=== PATIENT | female | born 1955 | race Caucasian/White ===

== ENCOUNTER 2019-07-30 17:21 | Emergency (ER) | payer OTHER ==
[2019-07-30] MEDS ORDERED: Ketorolac 30 MG/ML SDV IM ONE (20:08)
--- NOTE | 2019-07-30 20:10 | EDM.PDOC ---
ED HPI GENERAL MEDICAL PROBLEM - General Chief Complaint: Upper Extremity Injury/Pain Stated Complaint: RIGHT SIDE CHEST/ARM PAIN Time Seen by Provider: 07/30/19 19:49 Source of Information: Reports: Patient, RN Notes Reviewed History Limitations: Reports: No Limitations - History of Present Illness INITIAL COMMENTS - FREE TEXT/NARRATIVE: 63-year-old female presents emergency department today following a fall at home she tripped or She landed predominantly on the right side of her chest, she is experiencing pain in the chest no difficulty in the shoulder or elbow right side Pain Score (Numeric/FACES): 6 - Related Data Allergies Allergy/AdvReac Type Severity Reaction Status Date / Time adhesive tape Allergy Rash Verified 07/30/19 19:53 ciprofloxacin Allergy Hives Verified 07/30/19 19:53 clarithromycin Allergy Nausea and Verified 07/30/19 19:53 Vomiting flurazepam Allergy Hives Verified 07/30/19 19:53 levofloxacin Allergy Hives Verified 07/30/19 19:53 phenazopyridine Allergy Hives Verified 07/30/19 19:53 sulfacetamide Allergy Hives Verified 07/30/19 19:53 sulfamethoxazole Allergy Hives Verified 07/30/19 19:53 trimethoprim Allergy Hives Verified 07/30/19 19:53 [From Sulfamethoprim] IV contrast Allergy Anaphylactic Uncoded 07/30/19 19:53 Shock Home Meds: Home Meds Aspirin [Ecotrin EC] 81 mg PO BEDTIME 07/30/19 [History] Calcium Carbonate [Calcium] 500 mg PO BEDTIME 07/30/19 [History] ClonazePAM [KlonoPIN] 1 - 2 mg PO BEDTIME 07/30/19 [History] DULoxetine [Cymbalta] 120 mg PO BEDTIME 07/30/19 [History] Gabapentin [Neurontin] 600 mg PO TID 07/30/19 [History] Galcanezumab-Gnlm [Emgality Pen] 120 mg IJ ASDIRECTED 07/30/19 [History] Ondansetron [Zofran ODT] 4 mg PO ASDIRECTED 07/30/19 [History] Oxybutynin Chloride [Ditropan Xl] 10 mg PO BEDTIME 07/30/19 [History] Pantoprazole [ProTONIX] 40 mg PO BEDTIME 07/30/19 [History] Prochlorperazine [Compazine] 10 mg PO ASDIRECTED 07/30/19 [History] Risedronate [Actonel] 35 mg PO WEEKLY 07/30/19 [History] Topiramate [Topamax] 100 mg PO BID 07/30/19 [History] atorvaSTATin [Lipitor] 20 mg PO BEDTIME 07/30/19 [History] buPROPion HCl [Wellbutrin Xl] 300 mg PO DAILY 07/30/19 [History] diphenhydrAMINE HCl [Diphenhydramine HCl] 25 mg PO ASDIRECTED 07/30/19 [History] traZODone HCl [Trazodone HCl] 1 - 3 mg PO ASDIRECTED 07/30/19 [History] Past Medical History HEENT History: Reports: Impaired Vision Cardiovascular History: Reports: Other (See Below) Other Cardiovascular History: pericarditis [employer] History: Reports: Musculoskeletal History: Reports: Fracture Endocrine/Metabolic History: Reports: Hypoparathyroidism Oncologic (Cancer) History: Reports: Cervix - Past Surgical History GI Surgical History: Reports: Appendectomy, Cholecystectomy, Adán Fundoplication, Other (See Below) Other GI Surgeries/Procedures: diaphram rupture, Female Surgical History: Reports: Section, Hysterectomy Endocrine Surgical History: Reports: Other (See Below) Other Endocrine Surgeries/Procedures: took 3 glands Social & Family History - Tobacco Use Smoking Status *Q: Never Smoker - Recreational Drug Use Recreational Drug Use: No Review of Systems - Review of Systems Review Of Systems: See Below Respiratory: Reports: No Symptoms Cardiovascular: Reports: Chest Pain GI/Abdominal: Reports: No Symptoms ED EXAM, GENERAL - Physical Exam Exam: See Below Exam Limited By: No Limitations General Appearance: Alert, WD/WN, No Apparent Distress Respiratory/Chest: No Respiratory Distress, Lungs Clear, Normal Breath Sounds, No Accessory Muscle Use, Other (Tenderness to palpation anterior aspect right side superior portion) Cardiovascular: Regular Rate, Rhythm, No Murmur GI/Abdominal: Soft, Non-Tender Course - Vital Signs Last Recorded V/S: Last Vital Signs Temp 97.4 F 07/30/19 19:42 Pulse 63 07/30/19 19:42 Resp 16 07/30/19 19:42 BP 151/91 H 07/30/19 19:42 Pulse Ox 98 07/30/19 19:42 - Orders/Labs/Meds Meds: Medications Discontinued Medications Generic Name Dose Route Start Last Admin Trade Name Radha PRLuis Reason Stop Dose Admin Fentanyl 50 mcg 07/30/19 22:36 07/30/19 22:49 Sublimaze NASBOTH 07/30/19 22:37 50 mcg ONETIME ONE Administration Ketorolac Tromethamine 30 mg 07/30/19 20:08 07/30/19 20:23 Toradol IM 07/30/19 20:09 30 mg ONETIME ONE Administration Departure - Departure Time of Disposition: 23:15 Disposition: Home, Self-Care 01 Condition: Fair Clinical Impression: Right-sided chest wall pain - Discharge Information Referrals: PCP,None [Primary Care Provider] - Forms: ED Department Discharge Additional Instructions: Use ibuprofen for baseline pain control, use hydrocodone for breakthrough pain. Please followup with your primary care provider in 3-5 days if not better, please call return to the emergency department with worsening of symptoms. - Assessment/Plan Plan: Assessment Acuity = acute Site and laterality = chest wall pain right side Etiology = secondary to a fall Manifestations = none Location of injury = Home Lab values = chest x-ray shows no acute process Plan She had good relief with fentanyl and Toradol provided in the ED prescription written for hydrocodone 5/325 one tab by mouth 3 times a day when necessary total #6 follow-up primary care in 2-3 days if not better, This note was dictated using [employer] voice recognition software please call with any questions on syntax or grammar.
--- NOTE | 2019-07-30 22:32 | CRLCR ---
INDICATION: TRAUMA, RIGHT SIDED PAIN TECHNIQUE: Chest 2 views. COMPARISON: None. FINDINGS: Cardiovascular and mediastinum: Heart size and vasculature are normal in caliber and appearance. Mediastinum is within normal limits. Lungs and pleural spaces: Lungs are clear. No sign of infiltrate or mass. No sign of pleural effusion. No pneumothorax. Bones and soft tissues: No significant findings. IMPRESSION: Unremarkable chest. Dictated by: Curtis Gomez MD @ 07/30/2019 22:30:02 (Electronically Signed)
[2019-07-30] MEDS ORDERED: fentaNYL 100 MCG/2 ML SDV NASBOTH ONE (22:36)
== END 2019-07-30 23:33 | disposition home or self-care (01) ==
LOC: JP.ED 17:21
DX: R07.89 Other chest pain (principal); Z91.041 Radiographic dye allergy status; Z88.8 Allergy status to other drugs, medicaments and biological substances; Z88.6 Allergy status to analgesic agent; Z88.1 Allergy status to other antibiotic agents
CPT/HCPCS: 71046; 96372; 96374; 99284; J1885; J3010